=== PATIENT | male | born 1990 | race Caucasian/White ===

== ENCOUNTER 2018-08-27 06:13 | Day surgery (SDC) | payer OTHER ==
[2018-08-26 17:16] VITALS: BMI 24.6
[2018-08-27] MEDS ORDERED: COCAINE HCL 4% TOPICAL SOLUTION 4 ML BOTTLE TP ONE ×2 (07:19→08:31)
[2018-08-27] MEDS ORDERED: LIDOCAINE 1%/EPI 1:100000 (20 ML MULTI DOSE VIAL) ONE (07:21)
[2018-08-27] MEDS ORDERED: BACITRACIN 15 GM TUBE TOPICAL OINTMENT ONE (07:21)
[2018-08-27] MEDS ORDERED: MIDAZOLAM HCL 2 MG/2 ML SINGLE DOSE VIAL ONE (07:25)
--- NOTE | 2018-08-27 08:00 | HP ---
Admitting History and Physical - Admission Chief Complaint: Nasal congestion, chronic sinusitis History of Present Illness: Years of nasal congestion. 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 as well as repeated sinusitis, refractory to medical treatment History Source: Patient, Medical Record Limitations to Obtaining History: No Limitations - Smoking History Smoking history: Never smoked - Alcohol/Substance Use Hx Alcohol Use: No Home Medications - Allergies Allergies/Adverse Reactions: Allergies Allergy/AdvReac Type Severity Reaction Status Date / Time No Known Allergies Allergy Verified 08/27/18 07:02 - Home Medications Home Medications: Ambulatory Orders NK [No Known Home Medication] 08/26/18 Physical Examination Vital Signs: Vital Signs Temperature 98.2 F 08/27/18 07:01 Pulse Rate 71 08/27/18 07:01 Respiratory Rate 20 08/27/18 07:01 Blood Pressure 143/77 08/27/18 07:01 O2 Sat by Pulse Oximetry (%) 100 08/27/18 06:56 Imaging - Results Cat Scan: Report Reviewed, Image Reviewed (mild maxillary sinusitis, and nasal narrowing) Problem List - Problems (1) Sinusitis Assessment/Plan: synechia, sinusitis, for surgical correction Code(s): J32.9 - CHRONIC SINUSITIS, UNSPECIFIED Qualifiers: Sinusitis location: maxillary Chronicity: chronic Qualified Code(s): J32.0 - Chronic maxillary sinusitis
[2018-08-27] MEDS ORDERED: ROCURONIUM BROMIDE 50 MG/5 ML VIAL ONE (08:07)
[2018-08-27] MEDS ORDERED: PROPOFOL 20 ML ONE (08:08)
[2018-08-27] MEDS ORDERED: SODIUM CHLORIDE 0.9% P/F 10 ML VIAL IJ ONE (08:30)
[2018-08-27] MEDS ORDERED: ceFAZolin SODIUM 1 GM VIAL ONE (08:30)
[2018-08-27] MEDS ORDERED: ceFAZolin SODIUM 1 GM VIAL IVPB ONE (08:30)
[2018-08-27] MEDS ORDERED: LIDOCAINE 1%/EPI 1:100000 (50 ML MULTI DOSE VIAL) NR ONE (08:31)
[2018-08-27] MEDS ORDERED: DEXAMETHASONE SOD PHOSPHATE 4 MG/1 ML VIAL ONE (09:05)
[2018-08-27] MEDS ORDERED: TRIAMCINOLONE ACET 40MG/1ML VIAL ONE (09:08)
[2018-08-27] MEDS ORDERED: TRIAMCINOLONE ACETONIDE 40 MG/ML 10 ML VIAL NR ONE (09:11)
[2018-08-27] MEDS ORDERED: BACITRACIN 15 GM TUBE TOPICAL OINTMENT TP ONE (09:11)
[2018-08-27] MEDS ORDERED: NEOSTIGMINE METHYLSULFATE 0.5 MG/ML - 10 ML MDV ONE (09:12)
[2018-08-27] MEDS ORDERED: GLYCOPYRROLATE 0.2 MG/1 ML VIAL ONE (09:13)
[2018-08-27] MEDS ORDERED: PROMETHAZINE HCL 25 MG/1 ML VIAL ONE (09:32)
[2018-08-27] MEDS ORDERED: oxyCODONE HCL 5 MG TABLET PO PRN (09:38)
[2018-08-27] MEDS ORDERED: PROMETHAZINE HCL 25 MG/1 ML VIAL IVPUSH PRN (09:38)
[2018-08-27 11:37] VITALS: TEMP 97.8
[2018-08-27] MEDS ORDERED: oxyCODONE HCL 5 MG TABLET ONE (12:10)
[2018-08-27 13:40] VITALS: PULSE 78
[2018-08-27 17:44] VITALS: BP 130/78
--- NOTE | 2018-08-28 17:21 | PATH ---
Surgical Pathology Report Patient Name: KUMAR HERNANDEZ [facility]. Rec. #: [id number] /Age/Gender: 1990 (Age: 27) / M Account: [id number] Location: [facility] Taken: 08/27/2018 Received: 08/27/2018 Reported: 08/28/2018 Physicians: Emiliano Martínez M.D. Specimen(s) Received ETHMOID SINUS Clinical History Deviated nasal septum, hypertrophy nasal turbinates Final Diagnosis ETHMOID SINUS, EXCISION: BENIGN MUCOSA, SEROMUCINOUS GLANDS, AND SCANTY BONE ADMIXED WITH BLOOD CLOT. Electronically Signed Neal Peña M.D. Gross Description Received in formalin labeled "ethmoid sinus," is a 2.5 x 1.6 x 0.2 cm aggregate of finch-brown soft tissue fragments. The formalin is filtered and the specimen is entirely submitted in one cassette. /08/27/2018 saudi08/27/2018
== END 2018-08-27 14:00 | disposition home or self-care (01) ==
LOC: JASU-SURG 06:13
PROVIDERS: ATTEND Otolaryngology
PROC: 09BV8ZZ Excision of Left Ethmoid Sinus, Via Natural or Artificial Opening Endoscopic (ICD-10-PCS; 2018-08-27)
PROC: 09BU8ZZ Excision of Right Ethmoid Sinus, Via Natural or Artificial Opening Endoscopic (ICD-10-PCS; 2018-08-27)
PROC: 8E09XBZ Computer Assisted Procedure of Head and Neck Region (ICD-10-PCS; principal; 2018-08-27 08:00)
DX: J34.2 Deviated nasal septum (principal); J34.3 Hypertrophy of nasal turbinates; J32.2 Chronic ethmoidal sinusitis; J34.89 Other specified disorders of nose and nasal sinuses
CPT/HCPCS: 88304-TC; 94760